=== PATIENT | male | born 1960 | race Caucasian/White ===

== ENCOUNTER 2024-04-15 06:00 | Outpatient (RCR) | payer MEDICARE, SELFPAY | END 2024-04-29 23:59 | disposition home or self-care (01) | LOC: MPT 06:00 | PROVIDERS: Visit Provider Family Medicine | DX: M25.512 Pain in left shoulder (principal) | CPT/HCPCS: 97110; 97162; G0283 ==

== ENCOUNTER 2024-04-30 06:00 | Outpatient (RCR) | payer MEDICARE, SELFPAY | END 2024-05-30 23:59 | disposition home or self-care (01) | LOC: MPT 06:00 | PROVIDERS: Visit Provider Family Medicine | DX: M25.512 Pain in left shoulder (principal) | CPT/HCPCS: 97110; G0283 ==

== ENCOUNTER 2025-02-11 14:17 | Outpatient (CLI) | payer MEDICARE, SELFPAY ==
--- NOTE | 2025-02-11 14:24 | MRR_ITS ---
PROCEDURE INFORMATION: Exam: MR Left Upper Extremity Joint Without Contrast; Shoulder Exam date and time: 02/11/2025 2:43 PM Age: 64 years old Clinical indication: Chronic left shoulder pain that radiates down to the elbow/no known injury; Additional info: Lt shoulder pain TECHNIQUE: Imaging protocol: Magnetic resonance imaging of the left upper extremity without contrast. Exam focused on the shoulder. COMPARISON: No relevant prior studies available. FINDINGS: Bones/joints: No acute fracture or dislocation. Glenohumeral articulation demonstrates slight loss of joint space with mild thinning of articular cartilages. Mild nonspecific diffuse marrow heterogeneity. Glenoid labrum: Diffuse degenerative wearing of the glenoid labrum, particularly involving the anterior, posterior and inferior labrum, where small tears can not be excluded Supraspinatus tendon: [id number] AC joint DJD, including mild juxta-articular marrow inflammation as well as a prominent bony overgrowth component that mildly abuts the supraspinatus myotendinous junction likely contributes to a supraspinatus impingement syndrome. [id number] supraspinatus tendinosis as evidenced by thinning and intrasubstance signal abnormality affecting the mid to distal tendon Infraspinatus tendon: Mild infraspinatus tendinosis as evidenced by distal tendon intrasubstance signal abnormality Subscapularis tendon: Unremarkable. No evidence of tear. Teres minor tendon: Unremarkable. No evidence of tear. Tendon of biceps brachii: Suggestion of tendinosis involving the intra-articular portion of the long head biceps tendon; grossly intact biceps labral anchor Glenohumeral ligaments: Unremarkable. Soft tissues: Rotator cuff muscle bulk is preserved MR/MR shoulder LT wo con* [id number] IMPRESSION: 1. Up to moderate supraspinatus tendinosis, and mild infraspinatus tendinosis as described. 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 Suggestion of tendinosis involving the intra-articular portion of the long head biceps tendon 3. Diffuse degenerative wearing of the glenoid labrum, particularly involving the anterior, posterior and inferior labrum, where small tears can not be excluded
== END 2025-02-11 14:18 | disposition home or self-care (01) ==
LOC: RAD 14:21
PROVIDERS: PCP Family Medicine; Visit Provider Family Medicine
DX: M19.012 Primary osteoarthritis, left shoulder (principal); M67.814 Other specified disorders of tendon, left shoulder; R93.7 Abnormal findings on diagnostic imaging of other parts of musculoskeletal system
CPT/HCPCS: 73221